=== PATIENT | male | born 1995 | race Caucasian/White ===

== ENCOUNTER → 2017-05-19 | Outpatient (CLI) | payer OTHER, BC ==
[~2017-05-19] MED LIST: HYDR-757 PO; ONDA4TAB8 PO
== END ==
LOC: LAB 14:04
PROVIDERS: ATTEND Nurse Practitioner Family
DX: N50.89 Other specified disorders of the male genital organs (principal)
CPT/HCPCS: 36415; 86695; 86696; 86780; 87491; 87591